=== PATIENT | male | born 1950 | race Caucasian/White ===

== ENCOUNTER 2018-05-06 01:51 | Emergency (ER) | payer MEDICARE, MEDICAID ==
--- NOTE | 2018-05-06 08:43 | CT ---
PRELIMINARY REPORT/[facility]/EMERGENTY AFTER-HOURS PROCEDURE CT Head Without Intravenous Contrast EXAM DATE/TIME: 05/06/2018 2:20 AM CLINICAL HISTORY: 67 years old, male; Injury or trauma; Fall; Initial encounter; Blunt trauma (contusions or hematomas) ; Injury details: Fell out bed 8 in; Patient HX: Sent old report from other hospital TECHNIQUE: Axial computed tomography images of the head/brain without intravenous contrast. All CT scans at this facility use at least one of these dose optimization techniques: automated exposure control; mA and/ or kV adjustment per patient size (includes targeted exams where dose is matched to clinical indicati on); or iterative reconstruction. COMPARISON: No relevant prior studies available. FINDINGS: Brain: No acute intracranial hemorrhage. There is chronic appearing hypoattenuation within the RIGHT temporal lobe and LEFT frontal lobe compatible with encephalomalacia from prior infarction or injury. There are confluent areas of hypoattenuation within the periventricular and subcortical white matter compatible with moderate chronic microvascular ischemic change. There are multiple small hypodensities in the basal ganglia, consistent with remote lacunar infarctions. Ventricles: Normal. No ventriculomegaly. Bones/joints: Normal. No acute fracture. Sinuses: Normal as visualized. No acute sinusitis. Mastoid air cells: Normal as visualized. No mastoid effusion. Soft tissues: Normal. IMPRESSION: 1. No acute intracranial hemorrhage. 2. 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 Thank you for allowing us to participate in the care of your patient. Dictated and Authenticated by: Drew Vidal MD 05/06/2018 2:42 AM Central Time ([place] & [place]) FINAL REPORT CT BRAIN WITHOUT CONTRAST: Date: 05/06/18 Comparison made with the 11/19/17 study. Again noted are prior strokes in the right temporal and left frontal regions. There are also lacunar infarcts in the basal ganglia regions bilaterally, as well as chronic ischemic changes in the deep wh ite matter. No intracranial hemorrhage or extra-axial hematoma seen. The ventricles are normal in siz e given the age and atrophy present. Their appearance has not changed in the interval. There is no sk ull fracture. The visible paranasal sinuses are clear. No mass or edema seen. IMPRESSION: Old strokes and chronic ischemic changes, but no acute intracranial findings. Report in agreement with preliminary reading by [place]. POS: HOME
== END 2018-05-06 03:28 ==
LOC: BURERS 01:51
DX: H57.02 Anisocoria (principal); K21.9 Gastro-esophageal reflux disease without esophagitis; D64.9 Anemia, unspecified; I25.10 Atherosclerotic heart disease of native coronary artery without angina pectoris; F17.210 Nicotine dependence, cigarettes, uncomplicated; F29 Unspecified psychosis not due to a substance or known physiological condition; Z79.899 Other long term (current) drug therapy; Z79.82 Long term (current) use of aspirin; F03.90 Unspecified dementia, unspecified severity, without behavioral disturbance, psychotic disturbance, mood disturbance, and anxiety
CPT/HCPCS: 70450